=== PATIENT | male | born 1990 | race Hispanic/Latino ===

== ENCOUNTER 2018-06-21 21:52 | Emergency (ER) | payer BC ==
[2018-06-21 22:28] VITALS: BP 129/75; PULSE 68; RESP 18; TEMP 98.2; O2SAT 99
--- NOTE | 2018-06-21 23:03 | ED PDOC ---
Lower Extremity Pain/Injury Time Seen by Provider: 06/21/18 22:39 Chief Complaint (Nursing): Lower Extremity Problem/Injury Chief Complaint (Provider): ankle injury History Per: Patient History/Exam Limitations: no limitations Onset/Duration Of Symptoms: Hrs Current Symptoms Are (Timing): Still Present Additional Complaint(s): Pt was playing basketball a couple hours ago when he fell, twisting right ankle. He was able to partial weight bear with some pain, went home and iced it for a couple hours but swelling and pain persisted prompting ED visit. - Hip Description Of Injury: Fell Currently Unable To: Bear Weight Past Medical History Reviewed: Historical Data, Nursing Documentation, Vital Signs Vital Signs: Last Vital Signs Temp 98.2 F 06/21/18 22:26 Pulse 68 06/21/18 22:26 Resp 18 06/21/18 22:26 BP 129/75 06/21/18 22:26 Pulse Ox 99 06/21/18 22:26 - Medical History PMH: No Chronic Diseases - Family History Family History: States: No Known Family Hx - Allergies Allergies/Adverse Reactions: Allergies Allergy/AdvReac Type Severity Reaction Status Date / Time No Known Allergies Allergy Verified 06/21/18 22:26 Review of Systems Neurological: Negative for: Weakness, Numbness - ECG O2 Sat by Pulse Oximetry: 99 Medical Decision Making Medical Decision Making: Ankle x-ray: small avulsion fx off distal fibula, mortise intact. Ankle immobilized with malissa wrap and aircast. Crutches given and pt. instructed in crutch walking. Pt will f/u with his own ortho or tiffany leung front clerk. Disposition - Clinical Impression Clinical Impression: Ankle fracture - Patient ED Disposition Is Patient to be Admitted: No - Disposition Referrals: Jonathan Colón MD [Medical Doctor] - Disposition: Routine/Home Disposition Time: 23:51 Condition: STABLE Instructions: Ankle Fracture (DC) Forms: [employer] ([place]), [facility] ED School/Work Excuse
--- NOTE | 2018-06-22 08:40 | RAD ---
Date of service: 06/21/2018 PROCEDURE: Right Ankle Radiographs. HISTORY: trauma COMPARISON: None available. FINDINGS: BONES: Small chip or avulsion fractures appreciated off the inferior margins of the lateral malleolus right ankle. No additional fracture identified. No destructive bony lesion appreciable. JOINTS: Normal ankle mortise. No dislocation appreciated.. SOFT TISSUES: Prominent anterior and lateral malleolar soft tissue edema identified. OTHER FINDINGS: None. IMPRESSION: Chip or avulsion fracture related to the inferior margins of the lateral malleolus with prominent related lateral and anterior soft tissue edema identified left ankle. No dislocation.
== END 2018-06-21 23:50 | disposition home or self-care (01) ==
LOC: H.ER 21:52
DX: S82.891A Other fracture of right lower leg, initial encounter for closed fracture (principal); W18.30XA Fall on same level, unspecified, initial encounter